=== PATIENT | male | born 1965 | race Caucasian/White ===

== ENCOUNTER 2016-12-06 13:21 | Emergency (ER) | payer MEDICAID, OTHER ==
[~2016-12-06] VITALS: Ht 175.3 cm; Wt 70.0 kg
[2016-12-06] MEDS ORDERED: LORazepam 2 MG/ML VIAL ONE (13:27)
[2016-12-06] MEDS ORDERED: LORazepam 2 MG/ML VIAL IVS ONE (13:30)
[2016-12-06] MEDS ORDERED: SODIUM CHLORIDE 0.9% FLUSH 5 ML FLUSH IVF PRN (13:30)
[2016-12-06] MEDS ORDERED: SODIUM CHLOR 0.9% 1000 ML INJ 1,000 ML IV ONE (13:30)
--- NOTE | 2016-12-06 13:31 | PD ---
HPI Chief Complaint: seizure/altered mental status Time Seen by Provider: 13:24 Travel History International Travel<30 days: No Contact w/Intl Traveler<30days: No Traveled to known affect area: No History of Present Illness HPI 51-year-old male brought in by ambulance after an apparent seizure. According to EMS who obtained information from the patient's girlfriend, the patient has history of seizures, however is not on any antiepileptics. Seizure lasted for approximately 3 minutes. When EMS arrived on the scene the patient was postictal. During transport the patient became very combative. He was given 2 mg of IV Ativan. Upon arrival to the emergency department the patient is still combative, yelling "get off of me." He is unable to provide any history. EMS reports that the girlfriend denies drug use. They also report that his pupils were initially pinpoint. Blood glucose obtained by EMS was 69. The patient was given another 2 mg of Ativan after arrival to the emergency department and taken directly to CT for suspicion of intracranial abnormality. To 5 PM: The patient's is at the bedside. She reports that the patient was on Keppra, however he stopped taking this medication. He quit drinking alcohol in March of last year. He smokes marijuana occasionally. No other illicit drugs. [facility] Social History Tobacco Use: No Allergies-Medications (Allergen,Severity, Reaction): Coded Allergies: UNOBTAINABLE (Unverified , 12/06/16) Reported Meds & Prescriptions Reported Meds & Active Scripts Active Keppra (Levetiracetam) 500 Mg Tab 500 Mg PO BID Reported Keppra (Levetiracetam) 250 Mg Tab 250 Mg PO BID Gabapentin 300 Mg Cap 300 Mg PO BID Tylenol-Codeine #3 (Acetaminophen-Codeine) 300-30 mg Tab 1 Tab PO Q4H PRN Soma (Carisoprodol) 250 Mg Tab 250 Mg PO QID PRN Review of Systems ROS Limitations: Altered Mental Status Physical Exam Narrative GENERAL: Well-developed, well-nourished, awake, keeps eyes closed, agitated. SKIN: Warm and dry. No lacerations, abrasions, or ecchymosis. HEAD: Atraumatic. Normocephalic. EYES: Pupils dilated, 6 mm, round, reactive to light. No scleral icterus. No injection or drainage. ENT: Mucous membranes pink and moist. Airway is patent and protected. NECK: Trachea midline. No JVD. CARDIOVASCULAR: Regular rate and rhythm. RESPIRATORY: No accessory muscle use. Clear to auscultation. Breath sounds equal bilaterally. GASTROINTESTINAL: Abdomen soft, non-tender, nondistended. MUSCULOSKELETAL: No obvious deformities. No clubbing. No cyanosis. No edema. NEUROLOGICAL: Awake and alert. Agitated. No focal deficits. No obvious cranial nerve deficits. Motor grossly within normal limits. Normal speech. PSYCHIATRIC: Agitated. Data Data Last Documented VS Vital Signs Date Time Temp Pulse Resp B/P Pulse Ox O2 Delivery O2 Flow Rate FiO2 12/06/16 13:40 69 16 138/74 97 Room Air Orders Complete Blood Count With Diff (12/06/16 13:27) Alcohol (Ethanol) (12/06/16 13:27) Drug Screen, Random Urine (12/06/16 13:27) Electrocardiogram (12/06/16 ) Ct Brain W/O Iv Contrast(Rout) (12/06/16 ) Blood Glucose (12/06/16 13:27) Ecg Monitoring (12/06/16 13:27) Iv Access Insert/Monitor (12/06/16 13:27) Oximetry (12/06/16 13:27) Comprehensive Metabolic Panel (12/06/16 13:27) Sodium Chloride 0.9% Flush (Ns Flush) (12/06/16 13:30) Lorazepam Inj (Ativan Inj) (12/06/16 13:30) Sodium Chlor 0.9% 1000 Ml Inj (Ns 1000 M (12/06/16 13:30) Lorazepam Inj (Ativan Inj) (12/06/16 13:27) Salicylates (Aspirin) (12/06/16 13:32) Tylenol (Acetaminophen) (12/06/16 13:32) Cath For Specimen (12/06/16 13:32) Levetiracetam (Keppra) (12/06/16 15:00) Mandatory Outpatient Referral (12/06/16 15:00) Labs Laboratory Tests Test 12/06/16 12/06/16 13:30 13:40 White Blood Count 10.2 TH/MM3 Red Blood Count 4.79 MIL/MM3 Hemoglobin 14.6 GM/DL Hematocrit 43.0 % Mean Corpuscular Volume 89.6 FL Mean Corpuscular Hemoglobin 30.5 PG Mean Corpuscular Hemoglobin 34.1 % Concent Red Cell Distribution Width 13.2 % Platelet Count 280 TH/MM3 Mean Platelet Volume 8.2 FL Neutrophils (%) (Auto) 48.9 % Lymphocytes (%) (Auto) 38.4 % Monocytes (%) (Auto) 8.1 % Eosinophils (%) (Auto) 3.2 % Basophils (%) (Auto) 1.4 % Neutrophils # (Auto) 5.0 TH/MM3 Lymphocytes # (Auto) 3.9 TH/MM3 Monocytes # (Auto) 0.8 TH/MM3 Eosinophils # (Auto) 0.3 TH/MM3 Basophils # (Auto) 0.1 TH/MM3 CBC Comment DIFF FINAL Differential Comment Sodium Level 140 MEQ/L Potassium Level 3.7 MEQ/L Chloride Level 105 MEQ/L Carbon Dioxide Level 21.4 MEQ/L Anion Gap 14 MEQ/L Blood Urea Nitrogen 9 MG/DL Creatinine 1.23 MG/DL Estimat Glomerular Filtration 62 ML/MIN Rate Random Glucose 108 MG/DL Calcium Level 8.9 MG/DL Total Bilirubin 0.3 MG/DL Aspartate Amino Transf 49 U/L (AST/SGOT) Alanine Aminotransferase 74 U/L (ALT/SGPT) Alkaline Phosphatase 86 U/L Total Protein 7.4 GM/DL Albumin 4.1 GM/DL Salicylates Level 3.4 MG/DL Acetaminophen Level LESS THAN 2.0 MCG/ML Ethyl Alcohol Level LESS THAN 3 MG/DL Urine Opiates Screen POS Urine Barbiturates Screen NEG Urine Amphetamines Screen NEG Urine Benzodiazepines Screen NEG Urine Cocaine Screen NEG Urine Cannabinoids Screen POS [facility] Medical Decision Making Medical Screen Exam Complete: Yes Emergency Medical Condition: Yes Differential Diagnosis Seizure, postictal, ICH, drug/alcohol intoxication, electrolyte abnormality, withdrawal seizure Narrative Course Vital signs are within normal limits. CBC is unremarkable. CMP is unremarkable. Urine drug screen is positive for opiates and cannabinoids, negative for all other drugs tested. CT head read as normal exam. About 30 minutes after arrival the patient is awake, alert, oriented. Both the patient and the patient's were made aware of all findings. He will be restarted on his Keppra. He is stable for discharge home with outpatient follow -up with a primary care physician or neurologist this week. Medication compliance endorsed. Financial counselor spoke with patient regarding obtaining medications. Mandatory referral will be placed for neurology follow- up. He states he would like to be discharged home. He was informed on when to return to the emergency department. Both the patient and the patient's verbalize understanding and agreement with plan. Diagnosis Primary Impression: Seizure Additional Impression: Noncompliance with medications Referrals: Leola Johnson MD 3 days Neurologist Primary Care Physician 3 days Additional Instructions: Follow-up with a primary care physician this week. Follow-up with neurologist Dr. Johnson or a neurologist of your choice this week. Take Keppra as prescribed. Return to the emergency department for worsening symptoms or any other concerns. Scripts Levetiracetam (Keppra)500 Mg Gpg756 Mg PO BID #60 TAB Ref 3 Prov:Sebastian Cadet MD 12/06/16 Disposition: 01 DISCHARGE HOME Condition: Stable Sebastian Cadet MD Dec 06, 2016 13:31
[2016-12-06 13:38] VITALS: BP 120/68; PULSE 80; RESP 24; O2SAT 98
[2016-12-06 13:40] VITALS: BP 138/74; PULSE 69; RESP 16; O2SAT 97
--- NOTE | 2016-12-06 13:51 | RADRPT ---
EXAM DATE/TIME: 12/06/2016 13:34 [place] COMPARISON: No previous studies available for comparison. INDICATIONS : Altered mental status. RADIATION DOSE: 56.35 CTDIvol (mGy) MEDICAL HISTORY : None SURGICAL HISTORY : None. ENCOUNTER: Initial ACUITY: 1 day PAIN SCALE: 0/10 LOCATION: cranial TECHNIQUE: Multiple contiguous axial images were obtained of the head. Using automated exposure control and adj ustment of the mA and/or kV according to patient size, radiation dose was kept as low as reasonably a chievable to obtain optimal diagnostic quality images. FINDINGS: CEREBRUM: The ventricles are normal for age. No evidence of midline shift, mass lesion, hemorrhage or acute in farction. No extra-axial fluid collections are seen. POSTERIOR FOSSA: The cerebellum and brainstem are intact. The 4th ventricle is midline. The cerebellopontine angle i s unremarkable. EXTRACRANIAL: The visualized portion of the orbits is intact. SKULL: The calvaria is intact. No evidence of skull fracture. CONCLUSION: Normal examination. Kelley Paredes MD on December 06, 2016 at 13:49 Board Certified Radiologist. This report was verified electronically.
[2016-12-06 14:00] LABS: BASOPHIL # 0.1 TH/MM3 (0-0.2); BASOPHIL % 1.4 % (0.0-2.0); EOSINOPHIL # 0.3 TH/MM3 (0-0.4); EOSINOPHIL % 3.2 % (0.0-4.0); HEMO FLAGS DIFF FINAL; LYMPH % 38.4 % (9.0-44.0); LYMPHOCYTE # 3.9 TH/MM3 (1.0-4.8); MEAN CELL VOLUME 89.6 FL (80.0-100.0); MEAN CORPUSCULAR HEMOGLOBIN 30.5 PG (27.0-34.0); MEAN CORPUSCULAR HGB CONC 34.1 % (32.0-36.0); MONO % 8.1 % (0.0-8.0); NEUT % 48.9 % (16.0-70.0); PLATELET COUNT 280 TH/MM3 (150-450); RED BLOOD COUNT 4.79 MIL/MM3 (4.50-5.90); RED CELL DISTRIBUTION WIDTH 13.2 % (11.6-17.2); WHITE BLOOD COUNT 10.2 TH/MM3 (4.0-11.0)
[2016-12-06 14:07] LABS: AMPHETAMINE, URINE NEG (NEG); BARBITURATES, URINE NEG (NEG); COCAINE, URINE NEG (NEG)
[2016-12-06 14:22] LABS: ALKALINE PHOSPHATASE 86 U/L (45-117); TOTAL BILIRUBIN ADULT 0.3 MG/DL (0.2-1.0)
[2016-12-06 14:23] LABS: ALT (GPT) 74 U/L (12-78); ANION GAP 14 MEQ/L (5-15); AST (GOT) 49 U/L (15-37); BICARBONATE 21.4 MEQ/L (21.0-32.0); BLOOD UREA NITROGEN 9 MG/DL (7-18); CHLORIDE 105 MEQ/L (98-107); GLOMERULAR FILTRATION RATE 62 ML/MIN (>89); SODIUM (NA) 140 MEQ/L (136-145)
[2016-12-06 14:24] LABS: POTASSIUM 3.7 MEQ/L (3.5-5.1)
[2016-12-06] MEDS ORDERED: SOMA250T PO (14:25)
[2016-12-06] MEDS ORDERED: GABA300C5 PO (14:25)
[2016-12-06] MEDS ORDERED: TYLETAB34 PO (14:25)
[2016-12-06] MEDS ORDERED: LEVE250 PO (14:25)
[2016-12-06] MEDS ORDERED: levETIRAcetam 500 MG TAB PO ONE (15:00)
[2016-12-06] MEDS ORDERED: LEVE500 PO (15:00)
--- NOTE | 2016-12-07 15:58 | EKG ---
Date Performed: 12/06/2016 Time Performed: 13:58:48 PTAGE: 51 years EKG: Sinus rhythm POSSIBLE RIGHT VENTRICULAR CONDUCTION DELAY MODERATE VOLTAGE CRITERIA FOR LVH, CONSIDER NORMAL VARIA NT Clinical correlation is recommended BORDERLINE ECG NO PREVIOUS TRACING DOCTOR: Alex Nevarez Interpretating Date/Time 12/07/2016 15:58:15
== END 2016-12-06 15:43 | disposition home or self-care (01) ==
LOC: NEPC 13:21
DX: R56.9 Unspecified convulsions (principal); F12.90 Cannabis use, unspecified, uncomplicated; Z91.14 Patient's other noncompliance with medication regimen
CPT/HCPCS: 70450; 80053; 80307; 80329; 85025; 93005; 96374; 99285; J2060; J7030; P9612; 80320; G0480